=== PATIENT | female | born 1960 | race Hispanic/Latino ===

== ENCOUNTER 2019-02-14 00:22 | Observation (INO) | payer BC ==
[2019-02-14] MEDS ORDERED: NITROGLYCERIN 0.4 MG SL TAB SL ONE (00:58)
[2019-02-14 01:04] LABS: BASOPHILS % (AUTO) 0.6 % (0.0-5.0); EOSINOPHILS % (AUTO) 3.2 % (0.0-8.0); HEMATOCRIT 39.5 % (36-48); LYMPHOCYTES % (AUTO) 44.5 % (21.0-51.0); MEAN CORPUSCULAR HEMOGLOBIN 30.5 pg (27.0-33.0); MEAN CORPUSCULAR HGB CONC 33.9 g/dL (32.0-36.0); MEAN CORPUSCULAR VOLUME 89.8 fL (79-99); MONOCYTES % (AUTO) 11.8 % (3.0-13.0); NEUTROPHILS % (AUTO) 39.6 % (40.0-77.0); PLATELET COUNT (AUTO) 226 K/uL (130-400); RED CELL DISTRIBUTION WIDTH 12.2 % (11.0-15.5); WHITE BLOOD COUNT (AUTO) 6.9 K/uL (4.8-10.8)
[2019-02-14] MEDS ORDERED: NITROGLYCERIN 50 MG/D5% WATER 1 BOT ONE (01:06)
[2019-02-14 01:07] LABS: CREATININE 0.8 mg/dL (0.5-1.5); POTASSIUM 4.6 mmol/L (3.5-5.1)
[2019-02-14 01:12] LABS: BILIRUBIN,TOTAL 0.4 mg/dL (0.2-1.0)
[2019-02-14 01:13] LABS: INR 0.96 (0.85-1.15); PROTHROMBIN TIME 10.1 SEC (9.6-11.6)
[2019-02-14] MEDS ORDERED: IOHEXOL-350 75 ML VIAL IV ONE (01:29)
[2019-02-14 01:35] LABS: B-TYPE NATRIURETIC PEPTIDE 55 pg/mL (0-100)
[2019-02-14] MEDS ORDERED: ACETAMINOPHEN 325 MG TAB PO PRN ×2 (04:15)
[2019-02-14] MEDS ORDERED: LACTULOSE 20 GM/30 ML UDCUP PO PRN (04:15)
[2019-02-14] MEDS ORDERED: NITROGLYCERIN 50 MG/D5% WATER 250 BOT IV SCH (04:15)
[2019-02-14] MEDS ORDERED: ONDANSETRON HCL 4 MG/2 ML VIAL IV PRN (04:15)
[2019-02-14 05:58] LABS: CHOLESTEROL 96 mg/dL (<200); HDL CHOLESTEROL 78 mg/dL (35-85); LDL DIRECT 62 mg/dL (0-99); TRIGLYCERIDES 224 mg/dL (30-200)
[2019-02-14] MEDS ORDERED: LORAZEPAM 2 MG/ML 1 ML VIAL ONE (08:46)
[2019-02-14] MEDS ORDERED: ASPIRIN 81 MG EC TAB PO SCH (09:00)
[2019-02-14] MEDS ORDERED: ASPIRIN 81MG TAB.CHEW ONE (09:00)
[2019-02-14] MEDS ORDERED: FAMOTIDINE 20MG TAB 20 MG TAB PO SCH (09:00)
[2019-02-14] MEDS ORDERED: METOPROLOL TARTRATE 25 MG TAB PO SCH (09:00)
[2019-02-14] MEDS ORDERED: ENOXAPARIN SODIUM 40 MG/0.4 ML SYRINGE SQ SCH (09:00)
[2019-02-14] MEDS ORDERED: FAMOTIDINE 20MG TAB 20 MG TAB ONE (09:01)
[2019-02-14] MEDS ORDERED: ENOXAPARIN SODIUM 40 MG/0.4 ML SYRINGE SQ ONE (09:01)
[2019-02-14] MEDS ORDERED: METOPROLOL TARTRATE 25 MG TAB ONE (09:01)
[2019-02-14] MEDS ORDERED: LISINOPRIL 10 MG TABLET PO SCH (12:00)
[2019-02-14] MEDS ORDERED: HYDROCHLOROTHIAZIDE 25 MG TABLET PO SCH (12:00)
[2019-02-14] MEDS ORDERED: HYDROCHLOROTHIAZIDE 25 MG TABLET ONE (12:38)
[2019-02-14] MEDS ORDERED: LISINOPRIL 5 MG TABLET ONE (12:38)
[2019-02-14] MEDS ORDERED: ATORVASTATIN CALCIUM 20 MG TABLET PO SCH (21:00)
[2019-02-15] MEDS ORDERED: LISINOPRIL 10 MG TABLET PO SCH (09:00)
[2019-02-15] MEDS ORDERED: HYDROCHLOROTHIAZIDE 25 MG TABLET PO SCH (09:00)
== END 2019-02-14 18:14 | disposition left against medical advice (07) ==
LOC: EDH 00:22 → EDHIP 04:15 → INTOOBSV 04:15
PROVIDERS: ADMIT Internal Medicine; ATTEND Internal Medicine
DX: R07.89 Other chest pain (principal); I10 Essential (primary) hypertension; M32.9 Systemic lupus erythematosus, unspecified; I73.00 Raynaud's syndrome without gangrene; Z90.710 Acquired absence of both cervix and uterus; Z96.651 Presence of right artificial knee joint; Z79.899 Other long term (current) drug therapy; Z88.5 Allergy status to narcotic agent
CPT/HCPCS: 36415; 71045; 71275; 76770; 80053; 80061; 82550; 83880; 84484 ×3; 85025; 85610; 85730; 93005 ×2; 93975; 99291; G0378 ×14; J1650; J2060; J3490; Q9967